=== PATIENT | female | born 1995 | race Caucasian/White ===

== ENCOUNTER 2017-02-20 13:41 | Emergency (ER) | payer OTHER ==
[~2017-02-20 13:41] MED LIST: IBUP800T19 PO; TRAM50TA PO
[2017-02-20 13:44] VITALS: BP 133/84
[2017-02-20] MEDS ORDERED: LIDOCAINE 2%/EPI 1:100,000 20 ML VIAL. ONE (14:13)
[2017-02-20] MEDS ORDERED: LIDOCAINE 2%/EPI 1:100,000 20 ML VIAL. IJ ONE (14:30)
--- NOTE | 2017-02-20 14:31 | RAD ---
Examination: 3 views of the right hand History: History of right hand pain, and while washing glass Comparison: None available Findings: The alignment of the carpal bones grossly appears unremarkable. The carpometacarpal joints, metacarpophalangeal joints, interphalangeal joints grossly appears unremarkable. There is no obvious acute fracture identified. No evidence of radiopaque foreign body identified. Impression: 1. No acute osseous findings. 2. No evidence of radiopaque foreign body identified.
[2017-02-20] MEDS ORDERED: HYDROcodone/APAP 5/325MG 1 TAB TABLET PO ONE (14:45)
--- NOTE | 2017-02-20 15:22 | PHYS DOC ---
Adult General Chief Complaint Chief Complaint: LACERATION/AVULSION HPI HPI Patient is a 21 year old female who presents with right hand lacerations. The patient states she cut her right index & long fingers on a broken glass. Complains of tingling sensation in long finger. She denies other injuries. Last tetanus < 5 years ago. She is right handed. Review of Systems Review of Systems Constitutional: Denies fever or chills HENT: Denies nasal congestion or sore throat Respiratory: Denies cough or shortness of breath Cardiovascular: Denies chest pain GI: Denies abdominal pain, nausea, vomiting Musculoskeletal: Denies back pain or joint pain Integument: Reports hand lacerations Neurologic: Denies headache Current Medications Current Medications Current Medications Medications (Trade) Dose Ordered Sig/Adriana Start Time Stop Time Status Last Admin Dose Admin Acetaminophen/ Hydrocodone Bitart (Lortab 5/325) 1 tab 1X ONCE 02/20/17 14:45 02/20/17 14:46 DC Lidocaine/ Epinephrine (Xylocaine 2%-Epi 1:100,000) 20 ml STK-MED ONCE 02/20/17 14:13 02/20/17 14:14 DC Allergies Allergies Allergies Coded Allergies Type Severity Reaction Last Updated Verified hydrocodone Allergy Severe 02/20/17 Yes Physical Exam Physical Exam Constitutional: Well developed, well nourished, no acute distress, non-toxic appearance. HENT: Normocephalic, atraumatic, bilateral external ears normal, oropharynx moist, nose normal. Eyes: conjunctiva normal, no discharge. Cardiovascular: no edema. Lungs & Thorax: no respiratory distress. Abdomen: nondistended. Skin: finger lacerations as below. Back: No tenderness. Extremities: right hand with lacerations to palmar aspects of index & long fingers - 3 cm lacerations across base of both fingers, directly over crease at MCP joint of index finger, slightly distal to the same location in long finger, radial pulse 2+, radial/median/ulnar sensory & motor function intact iwht exception of decreased sensation to light touch to fingertip of the index finger. intact flexion/extension at DIP & PIP to both affected digits. Neurologic: Alert and oriented X 3 EKG EKG [] Radiology/Procedures Radiology/Procedures PROCEDURE: HAND RIGHT 3V Examination: 3 views of the right hand History: History of right hand pain, and while washing glass Comparison: None available Findings: The alignment of the carpal bones grossly appears unremarkable. The carpometacarpal joints, metacarpophalangeal joints, interphalangeal joints grossly appears unremarkable. There is no obvious acute fracture identified. No evidence of radiopaque foreign body identified. Impression: 1. No acute osseous findings. 2. No evidence of radiopaque foreign body identified. DICTATED AND SIGNED BY: FUNMI GARCIA MD DATE: 02/20/17 1426[] Course & Med Decision Making Course & Med Decision Making Pertinent Labs and Imaging studies reviewed. (See chart for details) The patient presents with finger lacerations. Tetanus up to date, wounds irrigated, XR shows no foreign body. Laceration repair by me. She does have decreased sensation to light touch to fingertip of the index finger. RN applied aluminum finger splint & dressing. Recommend wound care, follow up in orthopedic clinic with Dr. Coley if sensory deficits persist. Come back for signs of wound infection, or otherwise worsening condition. Discharged home in stable condition. [] Dragon Disclaimer Dragon Disclaimer This chart was dictated in whole or in part using Voice Recognition software in a busy, high-work load, and often noisy Emergency Department environment. It may contain unintended and wholly unrecognized errors or omissions. Laceration Repair Lac Repair Indication: finger lacerations Procedure: The patient was placed in the appropriate position and anesthesia around the lacerations was achieved by injection of 2% lidocaine with epinephrine, digital block to long finger & local injection to index finger. The area was then irrigated with a copious amount of normal saline, by the ED RN. The laceration was repaired using 4-0 ethilon, placed 4 simple interrupted sutures to index finger laceration & 3 simple interrupted sutures to long finger laceration. The wound area was then dressed with gauze & aluminum finger splint was provided to immobilize & for comfort. Total repaired wound length: 6 cm The patient tolerated the procedure well. Complications: none. Departure Departure: Impression: Primary Impression: Finger laceration Disposition: 01 HOME, SELF-CARE Condition: STABLE Referrals: LISS RIOJAS DO (PCP) [facility] Patient Instructions: Laceration Care, Adult, [id number] Additional Instructions: You were seen in the emergency department today for lacerations on your fingers. They were repaired with sutures. Please keep clean and dry. Okay to wash with soap and water twice daily. Use the splint and keep covered to minimize excessive bending of the fingers. Okay to work as tolerated. Take Tylenol or ibuprofen for pain. Follow-up in the orthopedic clinic if numbness in your fingertip continues. Come back in 7 days to have your sutures removed. Come back sooner for high fever, hot/red/swollen skin, pus draining from the wound, any otherwise worsening condition. Problem Qualifiers Primary Impression: Finger laceration Encounter type: initial encounter Finger: unspecified finger Damage to nail status: without damage Foreign body presence: without foreign body Laterality: right Qualified Codes: S61.219A - Laceration without foreign body of unspecified finger without damage to nail, initial encounter MIRIAN TELLO MD Feb 20, 2017 15:22
== END 2017-02-20 15:40 | disposition home or self-care (01) ==
LOC: ER 13:41
DX: S61.210A Laceration without foreign body of right index finger without damage to nail, initial encounter (principal); Z88.5 Allergy status to narcotic agent; W25.XXXA Contact with sharp glass, initial encounter; Y93.89 Activity, other specified; Y99.8 Other external cause status; Y92.89 Other specified places as the place of occurrence of the external cause
CPT/HCPCS: 12002; 73130; 99284-25